=== PATIENT | female | born 1995 | race Caucasian/White ===

== ENCOUNTER 2022-08-17 17:09 | Inpatient (IN) ==
[2022-08-17] MEDS: Ringers Solution, Lactated 1,000 ML IVC SCH ×2 (17:07→18:00)
[~2022-08-17 17:09] MED LIST: *HR* Nalbuphine 10 MG/ML AMPUL IV PRN; Famotidine 20 MG/2 ML VIAL IVP PRN; Metoclopramide 10 MG/2 ML VIAL IVP PRN; Morphine Sulfate 2 MG/ML SYRINGE SQ ONE; Naloxone 0.4 MG/ML INJ IVP PRN; Ondansetron 4 MG/2 ML VIAL IVP PRN; Ringers Solution, Lactated 1,000 ML ONE
[2022-08-17] MEDS ORDERED: *HR* FentaNYL (PF) 100 MCG/2 ML VIAL EP ONE (17:10)
[2022-08-17] MEDS ORDERED: Ropivacaine/PF 0.2% 20 ML VIAL EP ONE (17:10)
[2022-08-17] MEDS ORDERED: EPHEDrine sulfate 50 MG/10 ML VIAL IVP PRN (17:10)
[2022-08-17] MEDS ORDERED: Epidural Premix (fent/bupiv) 110 ML EP SCH (17:15)
[2022-08-17 17:36] LABS: Amphetamine Screen,Urine Negative ng/mL (Cutoff=1000); Barbiturate Screen,Urine Negative ng/mL (Cutoff=200); Benzodiazepines Screen,Urine Negative ng/mL (Cutoff=200); Cannabinoid Screen,Urine Negative ng/mL (Cutoff = 50); Cocaine Screen,Urine Negative ng/mL (Cutoff= 300); Opiate Screen,Urine Negative ng/mL (Cutoff=300); Phencyclidine Screen,Urine Negative ng/mL (Cutoff=25)
[2022-08-17 17:40] LABS: Basophils % 0.2 %; Hematocrit 34.6 % (35.3-44.9); Hemoglobin 11.3 g/dL (11.5-15.4); Immature Granulocytes % 0.6 % (0-4); Lymphocytes # 1.3 K/mcL (0.6-4.6); Lymphocytes % 5.7 %; Mean Corpuscular HGB Conc 32.7 g/dL (31.6-35.5); Mean Corpuscular Hemoglobin 23.1 pg (28.0-33.3); Mean Corpuscular Volume 70.8 fL (83.0-100.0); Monocytes % 4.6 %; Platelet Count 286 K/mcL (140-400); Red Blood Count 4.89 M/mcL (3.82-4.97); Segmented Neutrophils % 88.9 %; White Blood Count 22.5 K/mcL (4.3-11.1)
[2022-08-17] MEDS ORDERED: Oxytocin 30 UNIT/503 ML BAG IVC SCH (18:45)
[2022-08-18] MEDS ORDERED: Ondansetron ODT 4 MG TAB.RAPDIS SL PRN (01:02)
[2022-08-18] MEDS ORDERED: Lanolin 7 G OINT...G. TP PRN (01:02)
[2022-08-18] MEDS ORDERED: Oxytocin 30 UNIT/503 ML BAG IVC SCH (01:02)
[2022-08-18] MEDS ORDERED: OXYTOCIN/RINGERS LACTATE 10 UNIT/166.6 ML BAG IVC ONE (01:02)
[2022-08-18] MEDS ORDERED: Benzocaine/Menthol 56 GM AEROSOL SPRAY TP PRN (01:02)
[2022-08-18] MEDS: Acetaminophen 325 MG TABLET PO SCH ×4 (01:57→20:52)
[2022-08-18] MEDS: Ibuprofen 600 MG TABLET PO SCH ×4 (01:57→20:53)
[2022-08-18 03:40] LABS: Basophils % 0.2 %; Eosinophils % 0.1 %; Hematocrit 31.2 % (35.3-44.9); Hemoglobin 10.1 g/dL (11.5-15.4); Immature Granulocytes % 0.7 % (0-4); Lymphocytes # 1.9 K/mcL (0.6-4.6); Lymphocytes % 8.4 %; Mean Corpuscular HGB Conc 32.4 g/dL (31.6-35.5); Mean Corpuscular Hemoglobin 22.7 pg (28.0-33.3); Mean Corpuscular Volume 70.1 fL (83.0-100.0); Mean Platelet Volume 11.5 fL (9.4-12.4); Monocytes # 1.4 K/mcL (0.0-1.3); Monocytes % 6.4 %; Neutrophils # 18.8 K/mcL (1.6-8.9); Nucleated Red Blood Cells 0.1 /100 WBC (0); Platelet Count 248 K/mcL (140-400); Red Blood Count 4.45 M/mcL (3.82-4.97); Red Cell Distribution Width 14.9 % (11.5-14.5); Segmented Neutrophils % 84.2 %; White Blood Count 22.4 K/mcL (4.3-11.1)
[2022-08-18] MEDS ORDERED: Prenatal Vit/FA 1 EACH TABLET PO SCH (09:00)
[2022-08-18] MEDS ORDERED: Flu Vac QV 22-23 (6MOS UP)/PF 0.5 ML SYRINGE IM ONE (20:56)
[2022-08-18 21:34] VITALS: BP 131/81; PULSE 94; TEMP 98.7; O2SAT 98
[2022-08-18] MEDS ORDERED: *HR* HYDROcodone/Acet 5/325 mg TABLET PO PRN (23:21)
== END 2022-08-19 00:40 | disposition home or self-care (01) | DRG 807 ==
LOC: 1NENULAB → 1NENUOBS 08-18 01:05
PROVIDERS: ADMIT Registered Nurse; ATTEND Registered Nurse